=== PATIENT | female | born 1995 | race Caucasian/White ===

== ENCOUNTER 2020-12-10 15:46 | Observation (INO) ==
[2020-12-10] MEDS ORDERED: Ringers Solution, Lactated 1,000 ML IVC ONE (17:21)
[2020-12-10 19:12] LABS: Basophils # 0.1 K/mcL (0.0-0.2); Basophils % 0.4 %; Eosinophils # 0.1 K/mcL (0.0-0.6); Eosinophils % 0.8 %; Hematocrit 34.7 % (35.3-44.9); Hemoglobin 12.3 g/dL (11.5-15.4); Immature Granulocytes % 0.7 % (0-4); Lymphocytes # 2.1 K/mcL (0.6-4.6); Lymphocytes % 17.3 %; Mean Corpuscular HGB Conc 35.4 g/dL (31.6-35.5); Mean Corpuscular Hemoglobin 31.9 pg (28.0-33.3); Mean Corpuscular Volume 90.1 fL (83.0-100.0); Mean Platelet Volume 11.1 fL (9.4-12.4); Monocytes # 1.1 K/mcL (0.0-1.3); Neutrophils # 8.8 K/mcL (1.6-8.9); Platelet Count 206 K/mcL (140-400); Red Blood Count 3.85 M/mcL (3.82-4.97); Red Cell Distribution Width 14.3 % (11.5-14.5); Segmented Neutrophils % 71.8 %; White Blood Count 12.3 K/mcL (4.3-11.1)
== END 2020-12-10 20:00 | disposition home or self-care (01) ==
LOC: 1NENULAB
PROVIDERS: ADMIT Advanced Practice Midwife; ATTEND Advanced Practice Midwife

== ENCOUNTER 2021-01-18 05:59 | Inpatient (IN) ==
[2021-01-18] MEDS ORDERED: Ringers Solution, Lactated 1,000 ML ONE (06:17)
[2021-01-18] MEDS ORDERED: Famotidine 20 MG/2 ML VIAL IVP ONE (06:23)
[2021-01-18] MEDS ORDERED: Ringers Solution, Lactated 1,000 ML IVC ONE (06:23)
[2021-01-18] MEDS ORDERED: Metoclopramide 10 MG/2 ML VIAL IVP ONE (06:23)
[2021-01-18] MEDS ORDERED: Oxytocin 20 units/ LR 1000 mL 20 UNIT/1,000 ML BAG IVC ONE (06:23)
[2021-01-18] MEDS ORDERED: CeFAZolin 2,000 MG/120 ML BAG IVPB ONE (06:23)
[2021-01-18] MEDS ORDERED: Ringers Solution, Lactated 1,000 ML IVC SCH ×2 (06:30→12:09)
[2021-01-18] MEDS ORDERED: Oxytocin 20 units/ LR 1000 mL 20 UNIT/1,000 ML BAG IVC SCH ×3 (06:30→12:09)
[2021-01-18 07:29] LABS: Basophils # 0.1 K/mcL (0.0-0.2); Basophils % 0.5 %; Eosinophils # 0.1 K/mcL (0.0-0.6); Eosinophils % 0.8 %; Hematocrit 34.3 % (35.3-44.9); Hemoglobin 11.8 g/dL (11.5-15.4); Immature Granulocytes % 0.9 % (0-4); Lymphocytes # 2.4 K/mcL (0.6-4.6); Lymphocytes % 21.7 %; Mean Corpuscular HGB Conc 34.4 g/dL (31.6-35.5); Mean Corpuscular Hemoglobin 30.4 pg (28.0-33.3); Mean Corpuscular Volume 88.4 fL (83.0-100.0); Mean Platelet Volume 11.7 fL (9.4-12.4); Monocytes # 0.9 K/mcL (0.0-1.3); Monocytes % 8.4 %; Neutrophils # 7.4 K/mcL (1.6-8.9); Platelet Count 196 K/mcL (140-400); Red Blood Count 3.88 M/mcL (3.82-4.97); Red Cell Distribution Width 14.4 % (11.5-14.5); Segmented Neutrophils % 67.7 %; White Blood Count 10.9 K/mcL (4.3-11.1)
[2021-01-18 07:34] LABS: Protein/Creatinine Ratio,Urine 0.24 mg/mg (0.00-0.20)
[2021-01-18 07:47] LABS: Alanine Aminotransferase 16 Units/L (7-52); Aspartate Amino Transferase 14 Units/L (13-39); BUN/Creatinine Ratio 10 (6-26); Blood Urea Nitrogen 8 mg/dL (6-20); Lactate Dehydrogenase 188 Units/L (140-271); eGFR For African Americans > 60 (> 60); eGFR For Non-African Americans > 60 (> 60)
[2021-01-18 10:19] LABS: Amphetamine Screen,Urine Negative ng/mL (Cutoff=1000); Barbiturate Screen,Urine Negative ng/mL (Cutoff=200); Benzodiazepines Screen,Urine Negative ng/mL (Cutoff=200); Cannabinoid Screen,Urine Negative ng/mL (Cutoff = 50); Cocaine Screen,Urine Negative ng/mL (Cutoff= 300); Opiate Screen,Urine Negative ng/mL (Cutoff=300); Phencyclidine Screen,Urine Negative ng/mL (Cutoff=25)
[2021-01-18] MEDS ORDERED: Metoclopramide 10 MG/2 ML VIAL IVP PRN (12:09)
[2021-01-18] MEDS ORDERED: Ondansetron 4 MG/2 ML VIAL IVP PRN (12:09)
[2021-01-18] MEDS ORDERED: Simethicone 80 MG TAB.CHEW PO PRN (12:09)
[2021-01-18] MEDS: Ibuprofen 600 MG TABLET PO SCH ×2 (13:22→19:33)
[2021-01-18] MEDS: *HR* Nalbuphine 10 MG/ML AMPUL IV PRN ×3 (19:33→21:41)
[2021-01-18] MEDS: Acetaminophen 325 MG TABLET PO SCH (20:48)
[2021-01-19] MEDS: Ibuprofen 600 MG TABLET PO SCH ×4 (00:32→20:00)
[2021-01-19] MEDS: *HR* Nalbuphine 10 MG/ML AMPUL IV PRN ×10 (00:37→21:03)
[2021-01-19] MEDS: Acetaminophen 325 MG TABLET PO SCH ×3 (03:05→16:50)
[2021-01-19 07:06] LABS: Basophils % 0.4 %; Eosinophils # 0.1 K/mcL (0.0-0.6); Eosinophils % 1.3 %; Hematocrit 26.7 % (35.3-44.9); Immature Granulocytes % 0.6 % (0-4); Lymphocytes % 24.7 %; Mean Corpuscular HGB Conc 33.3 g/dL (31.6-35.5); Mean Corpuscular Hemoglobin 30.8 pg (28.0-33.3); Mean Corpuscular Volume 92.4 fL (83.0-100.0); Mean Platelet Volume 11.7 fL (9.4-12.4); Monocytes # 0.6 K/mcL (0.0-1.3); Monocytes % 7.6 %; Neutrophils # 5.4 K/mcL (1.6-8.9); Platelet Count 142 K/mcL (140-400); Red Blood Count 2.89 M/mcL (3.82-4.97); Red Cell Distribution Width 13.9 % (11.5-14.5); Segmented Neutrophils % 65.4 %; White Blood Count 8.2 K/mcL (4.3-11.1)
[2021-01-19 07:19] LABS: Hemoglobin 8.9 g/dL (11.5-15.4)
[2021-01-19] MEDS: Prenatal Vit/FA 1 EACH TABLET PO SCH (07:50)
[2021-01-19] MEDS: *HR* OxyCODONE Immed Rel 5 MG TABLET PO PRN ×2 (13:04→19:59)
[2021-01-20] MEDS: *HR* HYDROcodone/Acet 5/325 mg TABLET PO PRN ×2 (01:36→08:04)
[2021-01-20] MEDS: Acetaminophen 325 MG TABLET PO SCH (01:36)
[2021-01-20] MEDS: Ibuprofen 600 MG TABLET PO SCH (05:17)
[2021-01-20 07:38] VITALS: BP 127/83; PULSE 89; TEMP 98.8; O2SAT 98
[2021-01-20] MEDS: Prenatal Vit/FA 1 EACH TABLET PO SCH (08:03)
[2021-01-20] MEDS ORDERED: miSOPROStoL 100 MCG TABLET RC ONE (11:51)
== END 2021-01-20 11:52 | disposition home or self-care (01) | DRG 540 ==
LOC: 1NENULAB 05:59 → 1NENUOBS 12:07
PROVIDERS: ADMIT Obstetrics & Gynecology; ATTEND Obstetrics & Gynecology